=== PATIENT | male | born 1955 | race African-American/Black ===

== ENCOUNTER 2022-05-10 04:53 | Inpatient (IN) ==
[2022-05-10] MEDS ORDERED: SODIUM CHLORIDE 0.9% 1,000 ML IV STA (05:16)
[2022-05-10 05:51] LABS: Alanine Aminotransferase 21 U/L (16-61); Albumin 2.8 G/DL (3.4-5.0); Alkaline Phosphatase 183 U/L (45-117); Aspartate Amino Transferase 22 U/L (0-37); Blood Urea Nitrogen 29 MG/DL (7-18); Calcium 9.7 MG/DL (8.5-10.1); Carbon Dioxide 23 MMOL/L (21-32); Chloride 85 MMOL/L (98-107); Glucose 479 MG/DL (74-106); Osmolality,Calculated 286.8 MOS/KG (273-304); Potassium 3.4 MMOL/L (3.5-5.1); Sodium 130 MMOL/L (136-145); Total Protein 8.4 G/DL (6.4-8.2)
[2022-05-10 05:53] LABS: Arterial Base Excess iSTAT -2 MMOL/L (-2.5-2.5); Arterial Bicarbonate iSTAT 21.2 MMOL/L (20-26); Arterial O2 Saturation iSTAT 90 % (95-100); Arterial PCO2 iSTAT 31 MM HG (35-48); Arterial PO2 iSTAT 56 MM HG (80-95); Arterial Total CO2 iSTAT 22 MMO/L (23-27); Arterial pH iSTAT 7.442 (7.35-7.45)
[2022-05-10 06:10] LABS: Basophils % 0.1 % (0.0-0.8); Eosinophils % 0.1 % (0.00-10.9); Hematocrit 27.9 VOL% (42.0-52.0); Hemoglobin 8.8 GM/DL (14.0-18.0); Immature Granulocytes % 0.4 %; Immature Granulocytes Absolute 0.09 #; Lymphocytes % 4.8 % (21.2-54.2); Mean Corpuscular HGB Conc 31.5 GM/DL (32-36); Mean Corpuscular Volume 86.1 FL (87-102); Mean Platelet Volume 9.6 FL (9.6-12.0); Monocytes # 3.4 10*3/uL (0.11-0.8); Monocytes % 16.5 % (1.7-12.7); NRBC # 0.02 10*3/uL; Neutrophils % 78.1 % (38.7-73.9); Platelet Count 499 T/CUMM (130-400); Red Blood Count 3.24 MC/CUMM (3.8-5.5); Red Cell Distribution Width 22.3 % (9.3-17.3); White Blood Count 20.5 T/CUMM (4-12)
[2022-05-10 06:31] LABS: Band Neutrophils 8 % (0-10); Hypochromia 1+; Lymphocytes 4 % (20-55); Microcytosis 1+; Total Cells Counted 100
[2022-05-10 06:32] LABS: Ovalocytes Slight; Polychromasia Slight
[2022-05-10 06:33] LABS: Platelet Estimate Increased
[2022-05-10] MEDS ORDERED: MEROPENEM 500 MG in SODIUM CHLORIDE 0.9% 100 ML IV ONE (07:05)
[2022-05-10] MEDS ORDERED: traMADol 50 MG TABLET PEG PRN (08:43)
[2022-05-10] MEDS ORDERED: LEVOFLOXACIN INJ 750 MG/150 ML PREMIX IV ONE (09:00)
[2022-05-10] MEDS: INSULIN REGULAR 100 UNIT/ML SUBCUT SCH ×3 (12:02→21:39)
[2022-05-10] MEDS: INSULIN NPH 100 UNIT/ML SUBCUT SCH ×2 (12:02→21:38)
[2022-05-10] MEDS: ALBUTEROL/IPRATROPIUM 3 ML NEB RESP TX SCH ×2 (13:00→19:00)
[2022-05-10 13:28] LABS: Arterial Base Excess iSTAT 2 MMOL/L (-2.5-2.5); Arterial Bicarbonate iSTAT 25.7 MMOL/L (20-26); Arterial O2 Saturation iSTAT 100 % (95-100); Arterial PCO2 iSTAT 37 MM HG (35-48); Arterial PO2 iSTAT 161 MM HG (80-95); Arterial Total CO2 iSTAT 27 MMO/L (23-27); Arterial pH iSTAT 7.446 (7.35-7.45)
[2022-05-10] MEDS: LACTATED RINGERS 1,000 ML IV SCH (13:37)
[2022-05-10] MEDS: predniSONE 5 MG TABLET PEG SCH (13:39)
[2022-05-10] MEDS: MIDODRINE 5 MG TABLET PEG SCH ×2 (13:39→17:35)
[2022-05-10] MEDS: MULTIVITAMIN (BEROCCA) TABLET PEG SCH (13:39)
[2022-05-10] MEDS: ENOXAPARIN 40 MG/0.4 ML SYRINGE SUBCUT SCH (13:39)
[2022-05-10] MEDS ORDERED: FAMOTIDINE 20 MG TABLET PEG SCH (21:00)
[2022-05-10] MEDS: CINACALCET 30 MG TABLET PO SCH (21:39)
[2022-05-10] MEDS: LATANOPROST 0.005% OPH SOLN 2.5 ML BOTTLE BOTH EYES SCH (21:39)
[2022-05-10] MEDS: ATORVASTATIN 80 MG TABLET PEG SCH (21:39)
[2022-05-11 00:27] LABS: Basophils % 0.1 % (0.0-0.8); Eosinophils % 0.1 % (0.00-10.9); Hematocrit 23.9 VOL% (42.0-52.0); Hemoglobin 7.8 GM/DL (14.0-18.0); Immature Granulocytes % 0.4 %; Immature Granulocytes Absolute 0.07 #; Lymphocytes # 1.1 10*3/uL (1.4-4.0); Lymphocytes % 6.1 % (21.2-54.2); Mean Corpuscular HGB Conc 32.6 GM/DL (32-36); Mean Platelet Volume 9.2 FL (9.6-12.0); Monocytes # 2.5 10*3/uL (0.11-0.8); NRBC # 0.03 10*3/uL; Neutrophils % 79.3 % (38.7-73.9); Platelet Count 358 T/CUMM (130-400); Red Blood Count 2.88 MC/CUMM (3.8-5.5); Red Cell Distribution Width 21.9 % (9.3-17.3); White Blood Count 17.4 T/CUMM (4-12)
[2022-05-11] MEDS: ALBUTEROL/IPRATROPIUM 3 ML NEB RESP TX SCH ×4 (00:48→19:43)
[2022-05-11 00:56] LABS: Calcium 8.6 MG/DL (8.5-10.1); Osmolality,Calculated 282.7 MOS/KG (273-304); Potassium 3.5 MMOL/L (3.5-5.1)
[2022-05-11 01:01] LABS: Band Neutrophils 2 % (0-10); Lymphocytes 10 % (20-55); Total Cells Counted 100
[2022-05-11 01:02] LABS: Hypochromia Slight; Platelet Estimate Normal; Polychromasia Slight; Target Cells Few
[2022-05-11] MEDS: MIDODRINE 5 MG TABLET PEG SCH ×3 (06:01→18:27)
[2022-05-11] MEDS ORDERED: VANCOMYCIN INJ 1,000 MG in SODIUM CHLORIDE 0.9% 250 ML IV ONE (07:23)
[2022-05-11] MEDS ORDERED: VANCOMYCIN INJ 500 MG in SODIUM CHLORIDE 0.9% 100 ML IV PRN (07:32)
[2022-05-11] MEDS ORDERED: ENALAPRIL 5 MG TABLET PEG SCH (09:00)
[2022-05-11] MEDS ORDERED: amLODIPine 2.5 MG TABLET PEG SCH (09:00)
[2022-05-11] MEDS ORDERED: VANCOMYCIN INJ 1,500 MG in SODIUM CHLORIDE 0.9% 500 ML IV ONE (09:00)
[2022-05-11] MEDS: ENOXAPARIN 40 MG/0.4 ML SYRINGE SUBCUT SCH (09:04)
[2022-05-11] MEDS: MULTIVITAMIN (BEROCCA) TABLET PEG SCH (09:05)
[2022-05-11] MEDS: predniSONE 5 MG TABLET PEG SCH (09:05)
[2022-05-11] MEDS: INSULIN NPH 100 UNIT/ML SUBCUT SCH (09:05)
[2022-05-11] MEDS ORDERED: LACTATED RINGERS 250 ML IV ONE ×2 (09:05→09:37)
[2022-05-11] MEDS: LACTATED RINGERS 1,000 ML IV SCH (09:15)
[2022-05-11] MEDS: INSULIN REGULAR 100 UNIT/ML SUBCUT SCH (09:17)
[2022-05-11 09:27] LABS: Arterial Base Excess iSTAT 2 MMOL/L (-2.5-2.5); Arterial Bicarbonate iSTAT 26.9 MMOL/L (20-26); Arterial O2 Saturation iSTAT 100 % (95-100); Arterial PCO2 iSTAT 40 MM HG (35-48); Arterial PO2 iSTAT 235 MM HG (80-95); Arterial Total CO2 iSTAT 28 MMO/L (23-27); Arterial pH iSTAT 7.433 (7.35-7.45)
[2022-05-11] MEDS ORDERED: NOREPINEPHRINE 4 MG/4 ML VIAL IV ONE (09:55)
[2022-05-11] MEDS: NOREPINEPHRINE 8 MG in SODIUM CHLORIDE 0.9% 242 ML IV PRN (09:59)
[2022-05-11] MEDS ORDERED: DEXTROSE 10% 250 ML BAG IV PRN (10:18)
[2022-05-11] MEDS ORDERED: GLUCAGON 1 MG VIAL IM PRN (10:18)
[2022-05-11] MEDS: HYDROCORTISONE 100 MG VIAL IV SCH ×2 (10:35→18:28)
[2022-05-11] MEDS ORDERED: GENTAMICIN INJ 80 MG/50 ML PREMIX IV ONE (11:00)
[2022-05-11] MEDS: INSULIN LISPRO 100 UNIT/ML SUBCUT SCH ×2 (12:47→18:27)
[2022-05-11 20:03] LABS: Arterial Base Excess iSTAT 3 MMOL/L (-2.5-2.5); Arterial Bicarbonate iSTAT 27.2 MMOL/L (20-26); Arterial O2 Saturation iSTAT 98 % (95-100); Arterial PCO2 iSTAT 41 MM HG (35-48); Arterial PO2 iSTAT 106 MM HG (80-95); Arterial Total CO2 iSTAT 28 MMO/L (23-27); Arterial pH iSTAT 7.427 (7.35-7.45)
[2022-05-11] MEDS: CINACALCET 30 MG TABLET PO SCH (20:39)
[2022-05-11] MEDS: LATANOPROST 0.005% OPH SOLN 2.5 ML BOTTLE BOTH EYES SCH (20:39)
[2022-05-11] MEDS: ATORVASTATIN 80 MG TABLET PEG SCH (20:39)
[2022-05-11] MEDS: HEPARIN 5,000 UNIT/1 ML VIAL SUBCUT SCH (20:39)
[2022-05-12] MEDS: ALBUTEROL/IPRATROPIUM 3 ML NEB RESP TX SCH ×4 (00:19→19:13)
[2022-05-12] MEDS: INSULIN LISPRO 100 UNIT/ML SUBCUT SCH ×4 (00:52→17:42)
[2022-05-12 01:32] LABS: Basophils % 0.1 % (0.0-0.8); Hematocrit 23.3 VOL% (42.0-52.0); Hemoglobin 7.6 GM/DL (14.0-18.0); Immature Granulocytes % 0.6 %; Immature Granulocytes Absolute 0.12 #; Lymphocytes # 0.8 10*3/uL (1.4-4.0); Lymphocytes % 4.1 % (21.2-54.2); Mean Corpuscular HGB Conc 32.6 GM/DL (32-36); Mean Corpuscular Volume 82.6 FL (87-102); Mean Platelet Volume 9.8 FL (9.6-12.0); Monocytes # 1.9 10*3/uL (0.11-0.8); Monocytes % 9.3 % (1.7-12.7); NRBC # 0.02 10*3/uL; Neutrophils % 85.9 % (38.7-73.9); Platelet Count 334 T/CUMM (130-400); Red Blood Count 2.82 MC/CUMM (3.8-5.5); Red Cell Distribution Width 22.2 % (9.3-17.3); White Blood Count 20.4 T/CUMM (4-12)
[2022-05-12 01:54] LABS: Calcium 8.3 MG/DL (8.5-10.1); Osmolality,Calculated 295.2 MOS/KG (273-304); Potassium 4.4 MMOL/L (3.5-5.1)
[2022-05-12 02:08] LABS: Band Neutrophils 2 % (0-10); Lymphocytes 5 % (20-55); Platelet Estimate Normal; Total Cells Counted 100
[2022-05-12 02:09] LABS: Hypochromia 1+; Polychromasia Few; Target Cells Few
[2022-05-12] MEDS: HYDROCORTISONE 100 MG VIAL IV SCH ×3 (03:21→18:37)
[2022-05-12 03:48] LABS: Arterial Base Excess iSTAT 1 MMOL/L (-2.5-2.5); Arterial Bicarbonate iSTAT 25.7 MMOL/L (20-26); Arterial O2 Saturation iSTAT 99 % (95-100); Arterial PCO2 iSTAT 41 MM HG (35-48); Arterial PO2 iSTAT 139 MM HG (80-95); Arterial Total CO2 iSTAT 27 MMO/L (23-27); Arterial pH iSTAT 7.409 (7.35-7.45)
[2022-05-12] MEDS: MIDODRINE 5 MG TABLET PEG SCH ×3 (05:33→17:42)
[2022-05-12] MEDS ORDERED: HEPARIN 10,000 UNIT/10 ML VIAL IV PRN (08:35)
[2022-05-12 09:09] LABS: Hepatitis B Core IgM Quant < 0.05 Index; Hepatitis B Surface Ag Quant < 0.10 Index; Hepatitis B Surface Ag Result Non-Reactive (NonReactive); Hepatitis C Virus Ab Quant < 0.02 Index; Hepatitis C Virus Ab Result Non-Reactive (NonReactive)
[2022-05-12] MEDS: PANTOPRAZOLE 40 MG TABLET PO SCH (11:33)
[2022-05-12] MEDS: MULTIVITAMIN (BEROCCA) TABLET PEG SCH (11:33)
[2022-05-12] MEDS: HEPARIN 5,000 UNIT/1 ML VIAL SUBCUT SCH ×2 (11:34→21:17)
[2022-05-12] MEDS: LEVOFLOXACIN INJ 500 MG/100 ML PREMIX IV SCH (11:34)
[2022-05-12] MEDS ORDERED: VANCOMYCIN INJ 500 MG in SODIUM CHLORIDE 0.9% 100 ML IV ONE (17:00)
[2022-05-12] MEDS: LATANOPROST 0.005% OPH SOLN 2.5 ML BOTTLE BOTH EYES SCH (21:18)
[2022-05-12] MEDS: ATORVASTATIN 80 MG TABLET PEG SCH (21:18)
[2022-05-12] MEDS: CINACALCET 30 MG TABLET PO SCH (21:18)
[2022-05-13] MEDS: INSULIN LISPRO 100 UNIT/ML SUBCUT SCH ×4 (00:12→17:55)
[2022-05-13] MEDS: ALBUTEROL/IPRATROPIUM 3 ML NEB RESP TX SCH ×4 (00:16→19:08)
[2022-05-13] MEDS ORDERED: INSULIN REGULAR 100 UNIT/ML ONE (02:37)
[2022-05-13] MEDS ORDERED: INSULIN REGULAR 100 UNIT/ML IV ONE (02:45)
[2022-05-13 04:34] LABS: Basophils % 0.1 % (0.0-0.8); Hematocrit 23.7 VOL% (42.0-52.0); Hemoglobin 7.6 GM/DL (14.0-18.0); Immature Granulocytes % 0.7 %; Immature Granulocytes Absolute 0.13 #; Lymphocytes # 0.9 10*3/uL (1.4-4.0); Lymphocytes % 5.1 % (21.2-54.2); Mean Corpuscular HGB Conc 32.1 GM/DL (32-36); Mean Corpuscular Volume 83.2 FL (87-102); Mean Platelet Volume 9.5 FL (9.6-12.0); Monocytes # 1.8 10*3/uL (0.11-0.8); Monocytes % 9.7 % (1.7-12.7); NRBC # 0.16 10*3/uL; Neutrophils % 84.4 % (38.7-73.9); Platelet Count 231 T/CUMM (130-400); Red Blood Count 2.85 MC/CUMM (3.8-5.5); Red Cell Distribution Width 22.1 % (9.3-17.3); White Blood Count 18.4 T/CUMM (4-12)
[2022-05-13 04:47] LABS: Arterial Base Excess iSTAT 1 MMOL/L (-2.5-2.5); Arterial Bicarbonate iSTAT 25.5 MMOL/L (20-26); Arterial O2 Saturation iSTAT 77 % (95-100); Arterial PCO2 iSTAT 40 MM HG (35-48); Arterial PO2 iSTAT 41 MM HG (80-95); Arterial Total CO2 iSTAT 27 MMO/L (23-27); Arterial pH iSTAT 7.415 (7.35-7.45)
[2022-05-13 04:52] LABS: Arterial Base Excess iSTAT 1 MMOL/L (-2.5-2.5); Arterial Bicarbonate iSTAT 24.9 MMOL/L (20-26); Arterial O2 Saturation iSTAT 92 % (95-100); Arterial PCO2 iSTAT 34 MM HG (35-48); Arterial PO2 iSTAT 57 MM HG (80-95); Arterial Total CO2 iSTAT 26 MMO/L (23-27); Arterial pH iSTAT 7.477 (7.35-7.45)
[2022-05-13 05:03] LABS: Band Neutrophils 1 % (0-10); Lymphocytes 4 % (20-55); Polychromasia Few; Target Cells Few; Total Cells Counted 100
[2022-05-13 05:04] LABS: Hypochromia 1+; Microcytosis 1+
[2022-05-13 05:05] LABS: Anisocytosis 1+
[2022-05-13 05:07] LABS: Calcium 8.7 MG/DL (8.5-10.1); Osmolality,Calculated 296.1 MOS/KG (273-304); Potassium 3.7 MMOL/L (3.5-5.1)
[2022-05-13] MEDS: HYDROCORTISONE 100 MG VIAL IV SCH ×3 (05:44→21:02)
[2022-05-13] MEDS: MIDODRINE 5 MG TABLET PEG SCH ×3 (05:44→17:55)
[2022-05-13] MEDS: PANTOPRAZOLE 40 MG TABLET PO SCH (08:39)
[2022-05-13] MEDS: HEPARIN 5,000 UNIT/1 ML VIAL SUBCUT SCH ×2 (08:40→20:59)
[2022-05-13] MEDS: MULTIVITAMIN (BEROCCA) TABLET PEG SCH (08:40)
[2022-05-13] MEDS: INSULIN NPH 100 UNIT/ML SUBCUT SCH ×2 (08:54→21:00)
[2022-05-13] MEDS: CINACALCET 30 MG TABLET PO SCH (21:01)
[2022-05-13] MEDS: ATORVASTATIN 80 MG TABLET PEG SCH (21:01)
[2022-05-13] MEDS: LATANOPROST 0.005% OPH SOLN 2.5 ML BOTTLE BOTH EYES SCH (21:01)
[2022-05-14] MEDS: INSULIN LISPRO 100 UNIT/ML SUBCUT SCH ×4 (00:39→18:49)
[2022-05-14 05:43] LABS: Basophils % 0.1 % (0.0-0.8); Eosinophils % 0.1 % (0.00-10.9); Hematocrit 24.8 VOL% (42.0-52.0); Hemoglobin 7.9 GM/DL (14.0-18.0); Immature Granulocytes % 1.5 %; Immature Granulocytes Absolute 0.29 #; Lymphocytes # 0.9 10*3/uL (1.4-4.0); Lymphocytes % 4.9 % (21.2-54.2); Mean Corpuscular HGB Conc 31.9 GM/DL (32-36); Mean Corpuscular Volume 84.4 FL (87-102); Mean Platelet Volume 10.6 FL (9.6-12.0); Monocytes # 1.9 10*3/uL (0.11-0.8); Monocytes % 9.8 % (1.7-12.7); NRBC # 0.13 10*3/uL; Neutrophils % 83.6 % (38.7-73.9); Platelet Count 213 T/CUMM (130-400); Red Blood Count 2.94 MC/CUMM (3.8-5.5); Red Cell Distribution Width 22.5 % (9.3-17.3); White Blood Count 19.2 T/CUMM (4-12)
[2022-05-14 06:00] LABS: Calcium 9.1 MG/DL (8.5-10.1); Potassium 3.9 MMOL/L (3.5-5.1)
[2022-05-14 06:03] LABS: Lymphocytes 7 % (20-55); Nucleated Red Blood Cells 1 /100 WBC (0-5); Total Cells Counted 100
[2022-05-14 06:04] LABS: Hypochromia Slight; Microcytosis Slight; Platelet Estimate Adequate
[2022-05-14] MEDS: MIDODRINE 5 MG TABLET PEG SCH ×3 (06:16→18:49)
[2022-05-14] MEDS: HYDROCORTISONE 100 MG VIAL IV SCH ×3 (06:17→21:52)
[2022-05-14] MEDS: ALBUTEROL/IPRATROPIUM 3 ML NEB RESP TX SCH ×4 (06:50→19:08)
[2022-05-14] MEDS ORDERED: VANCOMYCIN INJ 500 MG in SODIUM CHLORIDE 0.9% 100 ML IV PRN (08:07)
[2022-05-14] MEDS: INSULIN NPH 100 UNIT/ML SUBCUT SCH ×2 (09:39→21:50)
[2022-05-14] MEDS: HEPARIN 5,000 UNIT/1 ML VIAL SUBCUT SCH ×2 (09:39→21:51)
[2022-05-14] MEDS: PANTOPRAZOLE 40 MG TABLET PO SCH (09:40)
[2022-05-14] MEDS: MULTIVITAMIN (BEROCCA) TABLET PEG SCH (09:40)
[2022-05-14] MEDS: LEVOFLOXACIN INJ 500 MG/100 ML PREMIX IV SCH (09:45)
[2022-05-14] MEDS ORDERED: SODIUM CHLORIDE 0.9% 1,000 ML IV PRN (09:58)
[2022-05-14] MEDS: NOREPINEPHRINE 8 MG in SODIUM CHLORIDE 0.9% 242 ML IV PRN (11:55)
[2022-05-14] MEDS ORDERED: VANCOMYCIN INJ 500 MG in SODIUM CHLORIDE 0.9% 100 ML IV ONE (17:00)
[2022-05-14] MEDS: ATORVASTATIN 80 MG TABLET PEG SCH (21:51)
[2022-05-14] MEDS: CINACALCET 30 MG TABLET PO SCH (21:51)
[2022-05-14] MEDS: LATANOPROST 0.005% OPH SOLN 2.5 ML BOTTLE BOTH EYES SCH (21:52)
[2022-05-15] MEDS: ALBUTEROL/IPRATROPIUM 3 ML NEB RESP TX SCH ×5 (00:05→22:04)
[2022-05-15] MEDS: INSULIN LISPRO 100 UNIT/ML SUBCUT SCH ×4 (00:17→18:30)
[2022-05-15 03:35] LABS: Basophils % 0.2 % (0.0-0.8); Hemoglobin 8.5 GM/DL (14.0-18.0); Immature Granulocytes Absolute 0.57 #; Lymphocytes # 1.3 10*3/uL (1.4-4.0); Lymphocytes % 6.6 % (21.2-54.2); Mean Corpuscular HGB Conc 32.7 GM/DL (32-36); Mean Corpuscular Volume 85.8 FL (87-102); Mean Platelet Volume 8.7 FL (9.6-12.0); Monocytes # 2.6 10*3/uL (0.11-0.8); Monocytes % 13.4 % (1.7-12.7); NRBC # 0.15 10*3/uL; Neutrophils % 76.8 % (38.7-73.9); Platelet Count 176 T/CUMM (130-400); Red Blood Count 3.03 MC/CUMM (3.8-5.5); White Blood Count 19.2 T/CUMM (4-12)
[2022-05-15 03:53] LABS: Alanine Aminotransferase 32 U/L (16-61); Albumin 1.9 G/DL (3.4-5.0); Alkaline Phosphatase 151 U/L (45-117); Aspartate Amino Transferase 41 U/L (0-37); Bilirubin,Total < 0.39 MG/DL (0.20-1.00); Blood Urea Nitrogen 47 MG/DL (7-18); Calcium 8.2 MG/DL (8.5-10.1); Carbon Dioxide 26 MMOL/L (21-32); Chloride 103 MMOL/L (98-107); Glucose 239 MG/DL (74-106); Osmolality,Calculated 294.7 MOS/KG (273-304); Potassium 3.6 MMOL/L (3.5-5.1); Sodium 138 MMOL/L (136-145); Total Protein 5.9 G/DL (6.4-8.2)
[2022-05-15 03:56] LABS: Hypochromia Slight; Lymphocytes 3 % (20-55); Microcytosis Slight; Platelet Estimate Adequate; Total Cells Counted 100
[2022-05-15 04:15] LABS: Arterial Base Excess iSTAT 3 MMOL/L (-2.5-2.5); Arterial Bicarbonate iSTAT 26.3 MMOL/L (20-26); Arterial O2 Saturation iSTAT 99 % (95-100); Arterial PCO2 iSTAT 35 MM HG (35-48); Arterial PO2 iSTAT 151 MM HG (80-95); Arterial Total CO2 iSTAT 27 MMO/L (23-27); Arterial pH iSTAT 7.482 (7.35-7.45)
[2022-05-15] MEDS: HYDROCORTISONE 100 MG VIAL IV SCH (05:32)
[2022-05-15] MEDS: MIDODRINE 5 MG TABLET PEG SCH ×3 (05:32→18:30)
[2022-05-15] MEDS: HEPARIN 5,000 UNIT/1 ML VIAL SUBCUT SCH ×2 (09:03→21:49)
[2022-05-15] MEDS: INSULIN NPH 100 UNIT/ML SUBCUT SCH ×2 (09:04→22:23)
[2022-05-15] MEDS: PANTOPRAZOLE 40 MG TABLET PO SCH (09:04)
[2022-05-15] MEDS: MULTIVITAMIN (BEROCCA) TABLET PEG SCH (09:04)
[2022-05-15] MEDS ORDERED: MORPHINE 2 MG/1 ML SYRINGE IV ONE (12:06)
[2022-05-15] MEDS ORDERED: MORPHINE 2 MG/1 ML SYRINGE ONE (12:08)
[2022-05-15] MEDS ORDERED: HYDROCORTISONE 100 MG VIAL IV SCH (18:00)
[2022-05-15] MEDS: predniSONE 5 MG TABLET PER TUBE SCH (21:49)
[2022-05-15] MEDS: CINACALCET 30 MG TABLET PO SCH (21:49)
[2022-05-15] MEDS: ATORVASTATIN 80 MG TABLET PEG SCH (21:49)
[2022-05-15] MEDS: LATANOPROST 0.005% OPH SOLN 2.5 ML BOTTLE BOTH EYES SCH (22:23)
[2022-05-16] MEDS: INSULIN LISPRO 100 UNIT/ML SUBCUT SCH ×4 (00:28→18:50)
[2022-05-16 05:34] LABS: Calcium 8.8 MG/DL (8.5-10.1); Osmolality,Calculated 294.8 MOS/KG (273-304); Potassium 3.6 MMOL/L (3.5-5.1)
[2022-05-16 05:35] LABS: Basophils # 0.1 10*3/uL (0.0-0.2); Basophils % 0.5 % (0.0-0.8); Eosinophils # 0.1 10*3/uL (0.0-0.87); Eosinophils % 0.4 % (0.00-10.9); Hematocrit 36.7 VOL% (42.0-52.0); Hemoglobin 11.6 GM/DL (14.0-18.0); Immature Granulocytes Absolute 0.68 #; Lymphocytes # 1.3 10*3/uL (1.4-4.0); Lymphocytes % 9.8 % (21.2-54.2); Mean Corpuscular HGB Conc 31.6 GM/DL (32-36); Mean Corpuscular Volume 89.1 FL (87-102); Mean Platelet Volume 9.4 FL (9.6-12.0); Monocytes # 2.1 10*3/uL (0.11-0.8); Monocytes % 15.3 % (1.7-12.7); NRBC # 0.23 10*3/uL; Platelet Count 130 T/CUMM (130-400); Red Blood Count 4.12 MC/CUMM (3.8-5.5); Red Cell Distribution Width 21.9 % (9.3-17.3); White Blood Count 13.5 T/CUMM (4-12)
[2022-05-16] MEDS: MIDODRINE 5 MG TABLET PEG SCH ×3 (05:47→18:25)
[2022-05-16 06:29] LABS: Anisocytosis 1+; Atypical Lymphocytes Few; Band Neutrophils 3 % (0-10); Burr Cells Few; Lymphocytes 15 % (20-55); Macrocytosis 1+; Myelocytes 2 %; Platelet Estimate Adequate; Poikilocytosis Slight; Total Cells Counted 100
[2022-05-16] MEDS: ALBUTEROL/IPRATROPIUM 3 ML NEB RESP TX SCH ×3 (07:21→20:30)
[2022-05-16] MEDS: predniSONE 5 MG TABLET PER TUBE SCH ×2 (09:14→22:33)
[2022-05-16] MEDS: OMEPRAZOLE ODT 20 MG TABLET PER TUBE SCH (09:14)
[2022-05-16] MEDS: INSULIN NPH 100 UNIT/ML SUBCUT SCH ×2 (09:14→22:53)
[2022-05-16] MEDS: MULTIVITAMIN (BEROCCA) TABLET PEG SCH (09:14)
[2022-05-16] MEDS: HEPARIN 5,000 UNIT/1 ML VIAL SUBCUT SCH ×2 (09:14→22:52)
[2022-05-16] MEDS: LEVOFLOXACIN INJ 500 MG/100 ML PREMIX IV SCH (09:27)
[2022-05-16] MEDS ORDERED: ALBUTEROL 2.5 MG/3 ML NEB RESP TX ONE ×2 (13:14→19:30)
[2022-05-16] MEDS ORDERED: IPRATROPIUM 500 MCG/2.5 ML NEB RESP TX ONE (19:29)
[2022-05-16] MEDS: ATORVASTATIN 80 MG TABLET PEG SCH (22:02)
[2022-05-16] MEDS: CINACALCET 30 MG TABLET PO SCH (22:02)
[2022-05-16] MEDS: LATANOPROST 0.005% OPH SOLN 2.5 ML BOTTLE BOTH EYES SCH (22:53)
[2022-05-17] MEDS ORDERED: ALBUTEROL 2.5 MG/3 ML NEB RESP TX ONE ×2 (00:31→19:06)
[2022-05-17] MEDS ORDERED: IPRATROPIUM 500 MCG/2.5 ML NEB RESP TX ONE ×4 (00:31→19:06)
[2022-05-17] MEDS: ALBUTEROL/IPRATROPIUM 3 ML NEB RESP TX SCH ×4 (00:52→19:57)
[2022-05-17] MEDS: ACETAMINOPHEN 325 MG TABLET PEG PRN (01:17)
[2022-05-17] MEDS: INSULIN LISPRO 100 UNIT/ML SUBCUT SCH ×4 (01:18→18:29)
[2022-05-17 05:32] LABS: Basophils % 0.2 % (0.0-0.8); Eosinophils # 0.2 10*3/uL (0.0-0.87); Hematocrit 23.6 VOL% (42.0-52.0); Hemoglobin 7.7 GM/DL (14.0-18.0); Immature Granulocytes % 3.8 %; Immature Granulocytes Absolute 0.61 #; Lymphocytes # 1.6 10*3/uL (1.4-4.0); Lymphocytes % 9.8 % (21.2-54.2); Mean Corpuscular HGB Conc 32.6 GM/DL (32-36); Mean Corpuscular Volume 86.8 FL (87-102); Mean Platelet Volume 9.6 FL (9.6-12.0); Monocytes # 2.6 10*3/uL (0.11-0.8); Monocytes % 16.4 % (1.7-12.7); NRBC # 0.12 10*3/uL; Neutrophils % 68.8 % (38.7-73.9); Platelet Count 160 T/CUMM (130-400); Red Blood Count 2.72 MC/CUMM (3.8-5.5); Red Cell Distribution Width 21.5 % (9.3-17.3)
[2022-05-17 05:47] LABS: Calcium 8.7 MG/DL (8.5-10.1); Potassium 3.3 MMOL/L (3.5-5.1)
[2022-05-17 05:50] LABS: Osmolality,Calculated 288.1 MOS/KG (273-304)
[2022-05-17] MEDS: MIDODRINE 5 MG TABLET PEG SCH ×3 (06:45→18:33)
[2022-05-17 07:03] LABS: Lymphocytes 5 % (20-55); Microcytosis Slight; Nucleated Red Blood Cells 2 /100 WBC (0-5); Platelet Estimate Adequate; Total Cells Counted 100
[2022-05-17 07:04] LABS: Hypochromia Slight
[2022-05-17] MEDS ORDERED: ALBUTEROL 1.25 MG/3 ML NEB RESP TX ONE ×2 (07:24→13:50)
[2022-05-17] MEDS: predniSONE 5 MG TABLET PER TUBE SCH ×2 (09:13→21:22)
[2022-05-17] MEDS: OMEPRAZOLE ODT 20 MG TABLET PER TUBE SCH (09:13)
[2022-05-17] MEDS: MULTIVITAMIN (BEROCCA) TABLET PEG SCH (09:13)
[2022-05-17] MEDS: HEPARIN 5,000 UNIT/1 ML VIAL SUBCUT SCH ×2 (09:14→21:35)
[2022-05-17] MEDS: INSULIN NPH 100 UNIT/ML SUBCUT SCH (09:14)
[2022-05-17] MEDS ORDERED: METHYL SALICYLATE 60 ML BOTTLE TOP PRN (15:44)
[2022-05-17] MEDS ORDERED: INSULIN NPH 100 UNIT/ML SUBCUT SCH (21:00)
[2022-05-17] MEDS: CINACALCET 30 MG TABLET PO SCH (21:22)
[2022-05-17] MEDS: ATORVASTATIN 80 MG TABLET PEG SCH (21:22)
[2022-05-17] MEDS: LATANOPROST 0.005% OPH SOLN 2.5 ML BOTTLE BOTH EYES SCH (21:41)
[2022-05-18] MEDS: INSULIN LISPRO 100 UNIT/ML SUBCUT SCH ×4 (00:13→17:11)
[2022-05-18 06:52] LABS: Basophils % 0.1 % (0.0-0.8); Eosinophils # 0.1 10*3/uL (0.0-0.87); Eosinophils % 0.8 % (0.00-10.9); Hematocrit 23.7 VOL% (42.0-52.0); Hemoglobin 7.6 GM/DL (14.0-18.0); Immature Granulocytes % 2.5 %; Lymphocytes # 1.4 10*3/uL (1.4-4.0); Lymphocytes % 8.7 % (21.2-54.2); Mean Corpuscular HGB Conc 32.1 GM/DL (32-36); Mean Corpuscular Volume 86.8 FL (87-102); Mean Platelet Volume 9.2 FL (9.6-12.0); Monocytes # 1.9 10*3/uL (0.11-0.8); NRBC # 0.03 10*3/uL; Neutrophils % 75.9 % (38.7-73.9); Platelet Count 168 T/CUMM (130-400); Red Blood Count 2.73 MC/CUMM (3.8-5.5); Red Cell Distribution Width 22.3 % (9.3-17.3); White Blood Count 15.8 T/CUMM (4-12)
[2022-05-18] MEDS ORDERED: ALBUTEROL 2.5 MG/3 ML NEB RESP TX ONE ×2 (06:58→12:55)
[2022-05-18 07:06] LABS: Calcium 8.2 MG/DL (8.5-10.1); Osmolality,Calculated 297.8 MOS/KG (273-304); Potassium 3.7 MMOL/L (3.5-5.1)
[2022-05-18] MEDS: ALBUTEROL/IPRATROPIUM 3 ML NEB RESP TX SCH ×3 (07:13→20:02)
[2022-05-18] MEDS: MIDODRINE 5 MG TABLET PEG SCH ×3 (07:15→17:10)
[2022-05-18] MEDS: INSULIN NPH 100 UNIT/ML SUBCUT SCH (08:58)
[2022-05-18] MEDS: OMEPRAZOLE ODT 20 MG TABLET PER TUBE SCH (08:59)
[2022-05-18] MEDS: predniSONE 5 MG TABLET PER TUBE SCH ×2 (08:59→22:02)
[2022-05-18] MEDS: LEVOFLOXACIN 500 MG TABLET PO SCH (08:59)
[2022-05-18] MEDS: MULTIVITAMIN (BEROCCA) TABLET PEG SCH (08:59)
[2022-05-18] MEDS: HEPARIN 5,000 UNIT/1 ML VIAL SUBCUT SCH ×2 (08:59→22:36)
[2022-05-18] MEDS ORDERED: IPRATROPIUM 500 MCG/2.5 ML NEB RESP TX ONE (12:55)
[2022-05-18] MEDS ORDERED: INSULIN NPH 100 UNIT/ML SUBCUT SCH (21:00)
[2022-05-18] MEDS: CINACALCET 30 MG TABLET PO SCH (22:02)
[2022-05-18] MEDS: ATORVASTATIN 80 MG TABLET PEG SCH (22:02)
[2022-05-18] MEDS: LATANOPROST 0.005% OPH SOLN 2.5 ML BOTTLE BOTH EYES SCH (22:37)
[2022-05-19] MEDS: INSULIN LISPRO 100 UNIT/ML SUBCUT SCH ×3 (02:06→11:17)
[2022-05-19] MEDS: ALBUTEROL/IPRATROPIUM 3 ML NEB RESP TX SCH ×4 (02:49→19:55)
[2022-05-19 06:03] LABS: Basophils % 0.1 % (0.0-0.8); Eosinophils # 0.1 10*3/uL (0.0-0.87); Eosinophils % 0.4 % (0.00-10.9); Hematocrit 23.5 VOL% (42.0-52.0); Hemoglobin 7.5 GM/DL (14.0-18.0); Immature Granulocytes % 1.7 %; Immature Granulocytes Absolute 0.33 #; Lymphocytes # 1.5 10*3/uL (1.4-4.0); Lymphocytes % 7.7 % (21.2-54.2); Mean Corpuscular HGB Conc 31.9 GM/DL (32-36); Mean Corpuscular Volume 86.4 FL (87-102); Monocytes # 1.8 10*3/uL (0.11-0.8); Monocytes % 9.6 % (1.7-12.7); NRBC # 0.03 10*3/uL; Neutrophils % 80.5 % (38.7-73.9); Platelet Count 216 T/CUMM (130-400); Red Blood Count 2.72 MC/CUMM (3.8-5.5); Red Cell Distribution Width 21.6 % (9.3-17.3)
[2022-05-19 06:14] LABS: Calcium 8.6 MG/DL (8.5-10.1)
[2022-05-19 06:15] LABS: Osmolality,Calculated 299.8 MOS/KG (273-304); Potassium 3.5 MMOL/L (3.5-5.1)
[2022-05-19] MEDS: MIDODRINE 5 MG TABLET PEG SCH ×3 (06:32→21:56)
[2022-05-19] MEDS: INSULIN NPH 100 UNIT/ML SUBCUT SCH ×2 (11:19→22:00)
[2022-05-19] MEDS ORDERED: guaiFENesin/CODEINE 5 ML LIQUID PO PRN (14:10)
[2022-05-19] MEDS: MULTIVITAMIN (BEROCCA) TABLET PEG SCH (17:23)
[2022-05-19] MEDS: HEPARIN 5,000 UNIT/1 ML VIAL SUBCUT SCH ×2 (17:23→21:10)
[2022-05-19] MEDS: OMEPRAZOLE ODT 20 MG TABLET PER TUBE SCH (17:24)
[2022-05-19] MEDS: predniSONE 5 MG TABLET PER TUBE SCH ×2 (17:24→21:12)
[2022-05-19] MEDS: CINACALCET 30 MG TABLET PO SCH (21:13)
[2022-05-19] MEDS: ATORVASTATIN 80 MG TABLET PEG SCH (21:13)
[2022-05-19] MEDS: LATANOPROST 0.005% OPH SOLN 2.5 ML BOTTLE BOTH EYES SCH (22:00)
[2022-05-20] MEDS: ALBUTEROL/IPRATROPIUM 3 ML NEB RESP TX SCH ×5 (00:01→19:20)
[2022-05-20] MEDS: INSULIN LISPRO 100 UNIT/ML SUBCUT SCH ×6 (01:28→23:54)
[2022-05-20] MEDS: ONDANSETRON 4 MG/2 ML VIAL IV PRN ×2 (02:07→23:54)
[2022-05-20] MEDS: ACETAMINOPHEN 325 MG TABLET PEG PRN (04:25)
[2022-05-20 05:15] LABS: Basophils % 0.1 % (0.0-0.8); Eosinophils # 0.1 10*3/uL (0.0-0.87); Eosinophils % 0.2 % (0.00-10.9); Hematocrit 28.6 VOL% (42.0-52.0); Hemoglobin 9.1 GM/DL (14.0-18.0); Immature Granulocytes % 0.9 %; Immature Granulocytes Absolute 0.21 #; Lymphocytes # 1.1 10*3/uL (1.4-4.0); Lymphocytes % 4.5 % (21.2-54.2); Mean Corpuscular HGB Conc 31.8 GM/DL (32-36); Mean Corpuscular Volume 87.7 FL (87-102); Mean Platelet Volume 9.7 FL (9.6-12.0); Monocytes # 1.4 10*3/uL (0.11-0.8); Monocytes % 5.6 % (1.7-12.7); Neutrophils % 88.7 % (38.7-73.9); Platelet Count 271 T/CUMM (130-400); Red Blood Count 3.26 MC/CUMM (3.8-5.5); Red Cell Distribution Width 21.4 % (9.3-17.3); White Blood Count 24.4 T/CUMM (4-12)
[2022-05-20] MEDS: MIDODRINE 5 MG TABLET PEG SCH ×3 (05:22→18:25)
[2022-05-20 05:37] LABS: Hypochromia Slight; Lymphocytes 5 % (20-55); Microcytosis Slight; Platelet Estimate Adequate; Total Cells Counted 100
[2022-05-20 05:41] LABS: Osmolality,Calculated 297.1 MOS/KG (273-304)
[2022-05-20] MEDS: INSULIN NPH 100 UNIT/ML SUBCUT SCH ×2 (09:26→22:13)
[2022-05-20] MEDS: predniSONE 5 MG TABLET PER TUBE SCH ×3 (09:34→21:14)
[2022-05-20] MEDS: MULTIVITAMIN (BEROCCA) TABLET PEG SCH ×2 (09:34)
[2022-05-20] MEDS: OMEPRAZOLE ODT 20 MG TABLET PER TUBE SCH ×2 (09:34→09:35)
[2022-05-20] MEDS: LEVOFLOXACIN 500 MG TABLET PO SCH ×2 (09:34)
[2022-05-20] MEDS: HEPARIN 5,000 UNIT/1 ML VIAL SUBCUT SCH ×2 (09:35→22:14)
[2022-05-20] MEDS ORDERED: POTASSIUM CHLORIDE RIDER 10 MEQ/100 ML PREMIX IV ONE (12:30)
[2022-05-20] MEDS: CLINDAMYCIN INJ 600 MG/50 ML PREMIX IV SCH ×2 (13:37→22:57)
[2022-05-20] MEDS: ATORVASTATIN 80 MG TABLET PEG SCH (21:14)
[2022-05-20] MEDS: LATANOPROST 0.005% OPH SOLN 2.5 ML BOTTLE BOTH EYES SCH (21:14)
[2022-05-20] MEDS: CINACALCET 30 MG TABLET PO SCH (21:14)
[2022-05-21] MEDS: ALBUTEROL/IPRATROPIUM 3 ML NEB RESP TX SCH ×5 (00:01→23:42)
[2022-05-21 05:07] LABS: Basophils # 0.1 10*3/uL (0.0-0.2); Basophils % 0.2 % (0.0-0.8); Eosinophils % 0.1 % (0.00-10.9); Hemoglobin 8.2 GM/DL (14.0-18.0); Immature Granulocytes % 1.1 %; Immature Granulocytes Absolute 0.35 #; Lymphocytes # 1.1 10*3/uL (1.4-4.0); Lymphocytes % 3.4 % (21.2-54.2); Mean Corpuscular HGB Conc 31.5 GM/DL (32-36); Mean Corpuscular Volume 87.5 FL (87-102); Mean Platelet Volume 9.9 FL (9.6-12.0); Monocytes # 3.1 10*3/uL (0.11-0.8); Monocytes % 9.9 % (1.7-12.7); NRBC # 0.02 10*3/uL; Neutrophils % 85.3 % (38.7-73.9); Platelet Count 331 T/CUMM (130-400); Red Blood Count 2.97 MC/CUMM (3.8-5.5); Red Cell Distribution Width 21.2 % (9.3-17.3); White Blood Count 31.4 T/CUMM (4-12)
[2022-05-21] MEDS: ONDANSETRON 4 MG/2 ML VIAL IV PRN ×2 (05:10→08:15)
[2022-05-21] MEDS: INSULIN LISPRO 100 UNIT/ML SUBCUT SCH ×5 (05:10→23:47)
[2022-05-21] MEDS: CLINDAMYCIN INJ 600 MG/50 ML PREMIX IV SCH ×3 (05:20→22:20)
[2022-05-21] MEDS: MIDODRINE 5 MG TABLET PEG SCH ×3 (05:23→17:31)
[2022-05-21 05:32] LABS: Hypochromia Slight; Lymphocytes 5 % (20-55); Microcytosis Slight; Platelet Estimate Adequate; Target Cells Slight; Total Cells Counted 100
[2022-05-21 05:37] LABS: Calcium 8.9 MG/DL (8.5-10.1); Potassium 3.4 MMOL/L (3.5-5.1)
[2022-05-21] MEDS ORDERED: methylPREDNISolone SOD SUC 125 MG/2 ML VIAL IV ONE (07:38)
[2022-05-21] MEDS ORDERED: SODIUM CHLORIDE 0.9% 250 ML IV ONE ×2 (07:48→08:30)
[2022-05-21] MEDS ORDERED: NOREPINEPHRINE 4 MG/4 ML VIAL IV ONE (07:58)
[2022-05-21] MEDS: NOREPINEPHRINE DRIP 8 MG/250 ML PREMIX IV PRN ×4 (08:05→21:15)
[2022-05-21] MEDS: OMEPRAZOLE ODT 20 MG TABLET PER TUBE SCH (09:20)
[2022-05-21] MEDS: predniSONE 5 MG TABLET PER TUBE SCH (09:20)
[2022-05-21] MEDS ORDERED: SODIUM CHLORIDE 0.9% 500 ML IV ONE ×2 (10:00→11:10)
[2022-05-21] MEDS ORDERED: MORPHINE 2 MG/1 ML SYRINGE IV ONE ×2 (10:30→17:15)
[2022-05-21] MEDS: MULTIVITAMIN (BEROCCA) TABLET PEG SCH (10:32)
[2022-05-21] MEDS ORDERED: MORPHINE 2 MG/1 ML SYRINGE ONE (10:41)
[2022-05-21 11:38] LABS: ABG Base Excess 5.3 MMOL/L (-2.5-2.5); ABG HCO3 29.1 MMOL/L (20-26); ABG Oxygen Saturation 94.9 % (95-100); ABG PCO2 48.6 MM HG (35-48); ABG PO2 76.4 MM HG (80-95)
[2022-05-21] MEDS: methylPREDNISolone SOD SUC 40 MG/1 ML VIAL IV SCH ×2 (12:07→20:31)
[2022-05-21] MEDS: PANTOPRAZOLE 40 MG VIAL IV SCH (12:07)
[2022-05-21] MEDS: HEPARIN 5,000 UNIT/1 ML VIAL SUBCUT SCH ×2 (12:07→20:33)
[2022-05-21] MEDS: ACETAMINOPHEN 325 MG TABLET PEG PRN (12:10)
[2022-05-21 13:07] LABS: Basophils # 0.1 10*3/uL (0.0-0.2); Basophils % 0.2 % (0.0-0.8); Hematocrit 26.7 VOL% (42.0-52.0); Hemoglobin 8.2 GM/DL (14.0-18.0); Immature Granulocytes % 1.8 %; Immature Granulocytes Absolute 0.68 #; Lymphocytes # 0.6 10*3/uL (1.4-4.0); Lymphocytes % 1.6 % (21.2-54.2); Mean Corpuscular HGB Conc 30.7 GM/DL (32-36); Mean Corpuscular Volume 89.6 FL (87-102); Mean Platelet Volume 9.6 FL (9.6-12.0); Monocytes # 0.5 10*3/uL (0.11-0.8); Monocytes % 1.4 % (1.7-12.7); Platelet Count 340 T/CUMM (130-400); Red Blood Count 2.98 MC/CUMM (3.8-5.5); Red Cell Distribution Width 21.4 % (9.3-17.3); White Blood Count 38.8 T/CUMM (4-12)
[2022-05-21 13:23] LABS: Calcium 8.1 MG/DL (8.5-10.1); Osmolality,Calculated 314.1 MOS/KG (273-304); Potassium 3.8 MMOL/L (3.5-5.1)
[2022-05-21 13:30] LABS: Platelet Estimate Adequate; Total Cells Counted 100
[2022-05-21] MEDS: INSULIN NPH 100 UNIT/ML SUBCUT SCH ×2 (19:20→20:32)
[2022-05-21] MEDS: ATORVASTATIN 80 MG TABLET PEG SCH (20:31)
[2022-05-21] MEDS: CINACALCET 30 MG TABLET PO SCH (20:31)
[2022-05-21] MEDS: LATANOPROST 0.005% OPH SOLN 2.5 ML BOTTLE BOTH EYES SCH (21:50)
[2022-05-22 03:50] LABS: ABG Base Excess 6.2 MMOL/L (-2.5-2.5); ABG HCO3 30.1 MMOL/L (20-26); ABG Oxygen Saturation 98.9 % (95-100); ABG PCO2 49.4 MM HG (35-48); ABG PH 7.413 (7.35-7.45); ABG TCO2 30.1 MMOL/L (23-27)
[2022-05-22 03:53] LABS: Basophils # 0.1 10*3/uL (0.0-0.2); Basophils % 0.2 % (0.0-0.8); Hematocrit 22.4 VOL% (42.0-52.0); Hemoglobin 7.1 GM/DL (14.0-18.0); Immature Granulocytes % 1.4 %; Lymphocytes # 1.3 10*3/uL (1.4-4.0); Mean Corpuscular HGB Conc 31.7 GM/DL (32-36); Mean Corpuscular Volume 87.8 FL (87-102); Mean Platelet Volume 9.6 FL (9.6-12.0); Monocytes # 1.4 10*3/uL (0.11-0.8); Monocytes % 3.1 % (1.7-12.7); Neutrophils % 92.3 % (38.7-73.9); Platelet Count 379 T/CUMM (130-400); Red Blood Count 2.55 MC/CUMM (3.8-5.5)
[2022-05-22 03:55] LABS: White Blood Count 43.7 T/CUMM (4-12)
[2022-05-22 04:03] LABS: Calcium 8.1 MG/DL (8.5-10.1); Osmolality,Calculated 309.4 MOS/KG (273-304); Potassium 3.8 MMOL/L (3.5-5.1)
[2022-05-22 04:15] LABS: Lymphocytes 2 % (20-55); Total Cells Counted 100
[2022-05-22 04:16] LABS: Hypochromia Slight; Microcytosis Slight; Platelet Estimate Adequate
[2022-05-22] MEDS: CLINDAMYCIN INJ 600 MG/50 ML PREMIX IV SCH ×3 (05:48→21:32)
[2022-05-22] MEDS: INSULIN LISPRO 100 UNIT/ML SUBCUT SCH ×4 (05:50→23:38)
[2022-05-22] MEDS: MIDODRINE 5 MG TABLET PEG SCH ×3 (05:51→17:58)
[2022-05-22] MEDS ORDERED: SODIUM CHLORIDE 0.9% 1,000 ML IV PRN (07:15)
[2022-05-22] MEDS: ALBUTEROL/IPRATROPIUM 3 ML NEB RESP TX SCH ×3 (07:23→19:33)
[2022-05-22] MEDS: NOREPINEPHRINE DRIP 8 MG/250 ML PREMIX IV PRN ×2 (08:00→23:59)
[2022-05-22] MEDS: INSULIN NPH 100 UNIT/ML SUBCUT SCH ×2 (09:25→21:33)
[2022-05-22] MEDS: methylPREDNISolone SOD SUC 40 MG/1 ML VIAL IV SCH ×2 (09:25→21:32)
[2022-05-22] MEDS: MULTIVITAMIN (BEROCCA) TABLET PEG SCH (09:25)
[2022-05-22] MEDS: LEVOFLOXACIN 500 MG TABLET PO SCH (09:25)
[2022-05-22] MEDS: PANTOPRAZOLE 40 MG VIAL IV SCH (09:25)
[2022-05-22] MEDS: HEPARIN 5,000 UNIT/1 ML VIAL SUBCUT SCH ×2 (09:25→21:33)
[2022-05-22] MEDS: LATANOPROST 0.005% OPH SOLN 2.5 ML BOTTLE BOTH EYES SCH (21:32)
[2022-05-22] MEDS: ATORVASTATIN 80 MG TABLET PEG SCH (21:33)
[2022-05-22] MEDS: CINACALCET 30 MG TABLET PO SCH (21:33)
[2022-05-23] MEDS: ALBUTEROL/IPRATROPIUM 3 ML NEB RESP TX SCH ×4 (00:13→18:57)
[2022-05-23 03:31] LABS: Basophils # 0.1 10*3/uL (0.0-0.2); Basophils % 0.2 % (0.0-0.8); Hematocrit 22.2 VOL% (42.0-52.0); Hemoglobin 6.8 GM/DL (14.0-18.0); Lymphocytes # 0.5 10*3/uL (1.4-4.0); Lymphocytes % 1.3 % (21.2-54.2); Mean Corpuscular HGB Conc 30.6 GM/DL (32-36); Mean Corpuscular Volume 89.9 FL (87-102); Mean Platelet Volume 9.2 FL (9.6-12.0); Monocytes # 1.1 10*3/uL (0.11-0.8); Monocytes % 2.6 % (1.7-12.7); NRBC # 0.03 10*3/uL; Neutrophils % 93.9 % (38.7-73.9); Platelet Count 412 T/CUMM (130-400); Red Blood Count 2.47 MC/CUMM (3.8-5.5); Red Cell Distribution Width 21.2 % (9.3-17.3)
[2022-05-23 03:37] LABS: White Blood Count 40.7 T/CUMM (4-12)
[2022-05-23 03:46] LABS: Calcium 8.2 MG/DL (8.5-10.1); Osmolality,Calculated 315.1 MOS/KG (273-304); Potassium 3.5 MMOL/L (3.5-5.1)
[2022-05-23 04:01] LABS: Anisocytosis 3+; Lymphocytes 2 % (20-55); Target Cells 2+; Total Cells Counted 100
[2022-05-23 04:02] LABS: Platelet Estimate Normal
[2022-05-23] MEDS: INSULIN LISPRO 100 UNIT/ML SUBCUT SCH ×4 (05:21→21:00)
[2022-05-23] MEDS: CLINDAMYCIN INJ 600 MG/50 ML PREMIX IV SCH ×3 (05:21→21:11)
[2022-05-23] MEDS: MIDODRINE 5 MG TABLET PEG SCH ×3 (05:22→19:05)
[2022-05-23] MEDS: PANTOPRAZOLE 40 MG VIAL IV SCH (08:32)
[2022-05-23] MEDS: MULTIVITAMIN (BEROCCA) TABLET PEG SCH (08:32)
[2022-05-23] MEDS: INSULIN NPH 100 UNIT/ML SUBCUT SCH ×2 (08:32→21:09)
[2022-05-23] MEDS: HEPARIN 5,000 UNIT/1 ML VIAL SUBCUT SCH (08:32)
[2022-05-23] MEDS: methylPREDNISolone SOD SUC 40 MG/1 ML VIAL IV SCH (08:35)
[2022-05-23 09:48] LABS: Hematocrit 25.7 VOL% (42.0-52.0)
[2022-05-23 10:10] LABS: Hemoglobin 8.3 GM/DL (14.0-18.0)
[2022-05-23] MEDS: NOREPINEPHRINE DRIP 8 MG/250 ML PREMIX IV PRN (13:00)
[2022-05-23] MEDS: CINACALCET 30 MG TABLET PO SCH (21:09)
[2022-05-23] MEDS: ATORVASTATIN 80 MG TABLET PEG SCH (21:10)
[2022-05-23] MEDS: LATANOPROST 0.005% OPH SOLN 2.5 ML BOTTLE BOTH EYES SCH (22:48)
[2022-05-24] MEDS: ALBUTEROL/IPRATROPIUM 3 ML NEB RESP TX SCH ×4 (02:36→20:08)
[2022-05-24] MEDS: INSULIN LISPRO 100 UNIT/ML SUBCUT SCH ×6 (03:17→21:22)
[2022-05-24 03:23] LABS: ABG Base Excess 5.3 MMOL/L (-2.5-2.5); ABG HCO3 29.2 MMOL/L (20-26); ABG Oxygen Saturation 99.1 % (95-100); ABG PCO2 47.5 MM HG (35-48); ABG TCO2 26.7 MMOL/L (23-27)
[2022-05-24 03:26] LABS: Basophils % 0.1 % (0.0-0.8); Hematocrit 25.3 VOL% (42.0-52.0); Hemoglobin 8.2 GM/DL (14.0-18.0); Immature Granulocytes % 0.8 %; Lymphocytes # 0.8 10*3/uL (1.4-4.0); Lymphocytes % 3.4 % (21.2-54.2); Mean Corpuscular HGB Conc 32.4 GM/DL (32-36); Mean Corpuscular Volume 86.3 FL (87-102); Mean Platelet Volume 8.7 FL (9.6-12.0); Monocytes # 1.6 10*3/uL (0.11-0.8); Monocytes % 6.8 % (1.7-12.7); NRBC # 0.07 10*3/uL; Neutrophils % 88.9 % (38.7-73.9); Platelet Count 357 T/CUMM (130-400); Red Blood Count 2.93 MC/CUMM (3.8-5.5); Red Cell Distribution Width 19.5 % (9.3-17.3); White Blood Count 23.8 T/CUMM (4-12)
[2022-05-24 03:37] LABS: Calcium 8.1 MG/DL (8.5-10.1); Osmolality,Calculated 291.1 MOS/KG (273-304); Potassium 3.5 MMOL/L (3.5-5.1)
[2022-05-24 04:06] LABS: Lymphocytes 10 % (20-55); Total Cells Counted 100
[2022-05-24 04:07] LABS: Platelet Estimate Normal; Target Cells 2+
[2022-05-24] MEDS: MIDODRINE 5 MG TABLET PEG SCH ×3 (06:19→18:18)
[2022-05-24] MEDS: CLINDAMYCIN INJ 600 MG/50 ML PREMIX IV SCH ×3 (06:19→22:32)
[2022-05-24] MEDS: MULTIVITAMIN (BEROCCA) TABLET PEG SCH (09:13)
[2022-05-24] MEDS: methylPREDNISolone SOD SUC 40 MG/1 ML VIAL IV SCH (09:13)
[2022-05-24] MEDS: PANTOPRAZOLE 40 MG VIAL IV SCH (09:14)
[2022-05-24] MEDS: INSULIN NPH 100 UNIT/ML SUBCUT SCH ×2 (09:33→21:21)
[2022-05-24] MEDS: CINACALCET 30 MG TABLET PO SCH (21:21)
[2022-05-24] MEDS: ATORVASTATIN 80 MG TABLET PEG SCH (21:21)
[2022-05-24] MEDS: LATANOPROST 0.005% OPH SOLN 2.5 ML BOTTLE BOTH EYES SCH (21:22)
[2022-05-25] MEDS: INSULIN LISPRO 100 UNIT/ML SUBCUT SCH ×6 (00:34→21:50)
[2022-05-25] MEDS: ACETYLCYSTEINE 20% 800 MG/4 ML VIAL RESP TX SCH ×4 (01:15→15:17)
[2022-05-25] MEDS: ALBUTEROL/IPRATROPIUM 3 ML NEB RESP TX SCH ×4 (01:15→19:02)
[2022-05-25 03:24] LABS: Basophils % 0.1 % (0.0-0.8); Eosinophils % 0.1 % (0.00-10.9); Hemoglobin 7.7 GM/DL (14.0-18.0); Immature Granulocytes % 0.4 %; Immature Granulocytes Absolute 0.06 #; Lymphocytes # 1.1 10*3/uL (1.4-4.0); Lymphocytes % 8.3 % (21.2-54.2); Mean Corpuscular HGB Conc 32.1 GM/DL (32-36); Mean Corpuscular Volume 88.6 FL (87-102); Mean Platelet Volume 8.8 FL (9.6-12.0); Monocytes # 1.3 10*3/uL (0.11-0.8); Monocytes % 9.2 % (1.7-12.7); NRBC # 0.04 10*3/uL; Neutrophils % 81.9 % (38.7-73.9); Platelet Count 279 T/CUMM (130-400); Red Blood Count 2.71 MC/CUMM (3.8-5.5); Red Cell Distribution Width 19.4 % (9.3-17.3); White Blood Count 13.6 T/CUMM (4-12)
[2022-05-25 03:40] LABS: Calcium 7.8 MG/DL (8.5-10.1); Osmolality,Calculated 294.5 MOS/KG (273-304); Potassium 3.4 MMOL/L (3.5-5.1)
[2022-05-25] MEDS ORDERED: LORazepam 2 MG/1 ML VIAL IV ONE (03:42)
[2022-05-25] MEDS: MIDODRINE 5 MG TABLET PEG SCH ×3 (06:42→17:53)
[2022-05-25] MEDS: CLINDAMYCIN INJ 600 MG/50 ML PREMIX IV SCH ×3 (06:43→21:51)
[2022-05-25] MEDS: PANTOPRAZOLE 40 MG VIAL IV SCH (08:03)
[2022-05-25] MEDS: MULTIVITAMIN (BEROCCA) TABLET PEG SCH (08:06)
[2022-05-25] MEDS: methylPREDNISolone SOD SUC 40 MG/1 ML VIAL IV SCH (08:06)
[2022-05-25] MEDS ORDERED: POTASSIUM BICARB EFFERVESCENT 20 MEQ TAB.EFF PO ONE (08:27)
[2022-05-25] MEDS: INSULIN NPH 100 UNIT/ML SUBCUT SCH ×2 (09:28→21:59)
[2022-05-25] MEDS: CINACALCET 30 MG TABLET PO SCH (21:51)
[2022-05-25] MEDS: ATORVASTATIN 80 MG TABLET PEG SCH (21:51)
[2022-05-25] MEDS: LATANOPROST 0.005% OPH SOLN 2.5 ML BOTTLE BOTH EYES SCH (21:52)
[2022-05-26] MEDS: INSULIN LISPRO 100 UNIT/ML SUBCUT SCH ×5 (00:34→18:07)
[2022-05-26] MEDS: ALBUTEROL/IPRATROPIUM 3 ML NEB RESP TX SCH ×4 (00:44→19:21)
[2022-05-26] MEDS: CLINDAMYCIN INJ 600 MG/50 ML PREMIX IV SCH ×3 (05:27→21:27)
[2022-05-26] MEDS: MIDODRINE 5 MG TABLET PEG SCH ×3 (05:37→18:08)
[2022-05-26 06:30] LABS: Basophils % 0.1 % (0.0-0.8); Eosinophils # 0.2 10*3/uL (0.0-0.87); Eosinophils % 1.3 % (0.00-10.9); Hematocrit 25.5 VOL% (42.0-52.0); Immature Granulocytes % 0.6 %; Immature Granulocytes Absolute 0.07 #; Lymphocytes # 1.4 10*3/uL (1.4-4.0); Mean Corpuscular HGB Conc 31.4 GM/DL (32-36); Mean Corpuscular Volume 88.2 FL (87-102); Monocytes # 1.1 10*3/uL (0.11-0.8); Monocytes % 8.5 % (1.7-12.7); NRBC # 0.02 10*3/uL; Neutrophils % 78.5 % (38.7-73.9); Platelet Count 291 T/CUMM (130-400); Red Blood Count 2.89 MC/CUMM (3.8-5.5); White Blood Count 12.6 T/CUMM (4-12)
[2022-05-26 06:50] LABS: Calcium 7.9 MG/DL (8.5-10.1); Osmolality,Calculated 295.7 MOS/KG (273-304); Potassium 3.4 MMOL/L (3.5-5.1)
[2022-05-26] MEDS: PANTOPRAZOLE 40 MG VIAL IV SCH (08:29)
[2022-05-26] MEDS: methylPREDNISolone SOD SUC 40 MG/1 ML VIAL IV SCH (08:33)
[2022-05-26] MEDS: INSULIN NPH 100 UNIT/ML SUBCUT SCH ×2 (09:15→21:28)
[2022-05-26] MEDS: MULTIVITAMIN (BEROCCA) TABLET PEG SCH (14:15)
[2022-05-26] MEDS: CINACALCET 30 MG TABLET PO SCH (21:27)
[2022-05-26] MEDS: ATORVASTATIN 80 MG TABLET PEG SCH (21:27)
[2022-05-26] MEDS: LATANOPROST 0.005% OPH SOLN 2.5 ML BOTTLE BOTH EYES SCH (21:28)
[2022-05-27] MEDS: ALBUTEROL/IPRATROPIUM 3 ML NEB RESP TX SCH ×2 (00:15→07:53)
[2022-05-27] MEDS: INSULIN LISPRO 100 UNIT/ML SUBCUT SCH ×3 (00:27→11:41)
[2022-05-27] MEDS: CLINDAMYCIN INJ 600 MG/50 ML PREMIX IV SCH ×2 (05:28→13:12)
[2022-05-27] MEDS: MIDODRINE 5 MG TABLET PEG SCH ×2 (05:28→11:40)
[2022-05-27 08:34] LABS: Basophils % 0.1 % (0.0-0.8); Eosinophils # 0.2 10*3/uL (0.0-0.87); Eosinophils % 1.4 % (0.00-10.9); Hematocrit 25.2 VOL% (42.0-52.0); Hemoglobin 7.9 GM/DL (14.0-18.0); Immature Granulocytes % 0.5 %; Immature Granulocytes Absolute 0.07 #; Lymphocytes # 1.6 10*3/uL (1.4-4.0); Lymphocytes % 12.5 % (21.2-54.2); Mean Corpuscular HGB Conc 31.3 GM/DL (32-36); Mean Corpuscular Volume 89.7 FL (87-102); Mean Platelet Volume 8.9 FL (9.6-12.0); Monocytes # 1.4 10*3/uL (0.11-0.8); Monocytes % 10.8 % (1.7-12.7); Neutrophils % 74.7 % (38.7-73.9); Platelet Count 276 T/CUMM (130-400); Red Blood Count 2.81 MC/CUMM (3.8-5.5); Red Cell Distribution Width 19.1 % (9.3-17.3); White Blood Count 12.8 T/CUMM (4-12)
[2022-05-27] MEDS: MULTIVITAMIN (BEROCCA) TABLET PEG SCH (08:53)
[2022-05-27] MEDS: methylPREDNISolone SOD SUC 40 MG/1 ML VIAL IV SCH (08:57)
[2022-05-27] MEDS: PANTOPRAZOLE 40 MG VIAL IV SCH (08:58)
[2022-05-27] MEDS: INSULIN NPH 100 UNIT/ML SUBCUT SCH (08:58)
[2022-05-27 09:02] LABS: Calcium 8.3 MG/DL (8.5-10.1); Osmolality,Calculated 296.5 MOS/KG (273-304); Potassium 3.5 MMOL/L (3.5-5.1)
[2022-05-27 11:12] VITALS: BP 98/48
[2022-05-28] MEDS ORDERED: predniSONE 20 MG TABLET PO SCH (09:00)
== END 2022-05-27 14:10 | DRG 853 ==
LOC: EDUNIT# → N.ED 04:53 → N.EDINP 08:45 → SUATTDRO 08:45 → N.5E 09:52 → N.CC 05-11 09:55 → N.3E 05-15 16:37 → N.CC 05-21 07:58 → N.3E 05-25 18:36
PROVIDERS: ADMIT Phlebology; ATTEND Internal Medicine Geriatric Medicine